=== PATIENT | male | born 1955 | race Caucasian/White ===

== ENCOUNTER → 2016-10-20 | Outpatient (CLI) | payer OTHER | LOC: EMI 10-03 16:15 | DX: M54.16 Radiculopathy, lumbar region (principal); M99.73 Connective tissue and disc stenosis of intervertebral foramina of lumbar region; M51.26 Other intervertebral disc displacement, lumbar region | CPT/HCPCS: 72148 ==

== ENCOUNTER → 2020-12-13 | Outpatient (CLI) | payer MEDICARE, OTHER ==
[~2020-12-13] MED LIST: COZAAR100 MG PO; ECOTRIN81 MG PO; LEVOCETIRIZINE D5 MG PO; LIPITOR TAB 2020 MG PO; MELOXICAM15 MG PO; NORVASC 5 MG TAB5 MG PO; OMEPRAZOLE20 MG PO; SINEMET 10-1001 EACH PO; VISTARIL 50 MG50 MG PO
== END ==
LOC: HEART CORB 11:00
DX: I10 Essential (primary) hypertension (principal); R42 Dizziness and giddiness; I44.1 Atrioventricular block, second degree; I34.0 Nonrheumatic mitral (valve) insufficiency; I07.1 Rheumatic tricuspid insufficiency; I37.1 Nonrheumatic pulmonary valve insufficiency
CPT/HCPCS: 93306